=== PATIENT | female | born 1990 | race Caucasian/White ===

== ENCOUNTER 2023-12-04 07:41 | Outpatient (CLI) | payer OTHER, SELFPAY | END 2023-12-04 07:42 | disposition home or self-care (01) | PROVIDERS: PCP Family Medicine; Visit Provider Family Medicine | DX: R03.0 Elevated blood-pressure reading, without diagnosis of hypertension (principal); E66.01 Morbid (severe) obesity due to excess calories; Z13.220 Encounter for screening for lipoid disorders; Z13.29 Encounter for screening for other suspected endocrine disorder | CPT/HCPCS: 80053; 80061; 84443 ==

== ENCOUNTER 2024-09-07 19:47 | Emergency (ER) | payer OTHER, SELFPAY ==
[2024-09-07] VITALS (13 sets, daily range): BP systolic 125–135; BP diastolic 67–81; PULSE 90–105; RESP 11–23; TEMP 36.7; O2SAT 97–100; BMI 74.2
--- NOTE | 2024-09-07 20:03 | ED.CHESTPAIN ---
HPI - Chest Pain General Time Seen by Provider: 20:04 Date Seen: 09/07/24 Chief Complaint: Chest Pain Stated Complaint: right chest pain moving into shoulder Time Seen by Provider: 09/07/24 20:03 Source: patient, RN notes reviewed and old records reviewed Mode of arrival: ambulatory Limitations: no limitations History of Present Illness HPI narrative: Meri is a very pleasant 33-year-old female with history of elevated BMI, past history of gestational hypertension who comes to the emergency room with chest pain. Meri notes the onset of chest discomfort-shows me to be the right ribcage laterally yesterday. Today it is now moved up into the right anterior upper chest. She notes that when the discomfort happens at seems to be sharp or pressure-like and is occurring for up to 10 seconds at a time. She notes that it is worse when she is walking but the pain will also occur at rest as well. She has not had any shortness of breath or vomiting. She denies any into indigestion fever chills cough or cold. She denies lower extremity edema. Notes that in the past she had a blood clot but never needed to go on a blood thinner. No recent travel increasing calf size or tenderness. Meri cannot recall any unusual activity, trauma or fall. 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 Related Data Home Medications ?Medication ?Instructions ?Recorded ?Confirmed No Known Home Medications 07/25/23 09/07/24 Allergies Allergy/AdvReac Type Severity Reaction Status Date / Time vancomycin Allergy Severe Anaphylaxis Verified 09/07/24 19:58 soy Allergy Unknown Unknown Verified 09/07/24 19:58 Review of Systems Status of ROS Reports: 10 or more systems reviewed and unremarkable except as noted in History and below Const Denies: fever, chills or fatigue Eyes Denies: change in vision ENMT Denies: throat pain, neck pain or nasal congestion Cardio Denies: chest pain, swelling of feet/ankles, lightheadedness or shortness of breath with exertion Resp Denies: shortness of breath or cough GI Denies: abdominal pain, nausea or vomiting Musculo Denies: neck pain Neuro Denies: headache Endo Denies: fatigue [facility] Medical History History of vaginal delivery (07/27/14) History of gestational hypertension (2015) ?Z87.59 - Personal history of other complications of , childbirth and the puerperium (ICD-10) Surgical History History of tonsillectomy and adenoidectomy ?Z90.89 - Acquired absence of other organs (ICD-10) Social History What is your current living situation?: I presently have a place to live Problems where you live: declined to answer In the past 12 months, utilities in danger of being shut off: declined to answer In past 12 months, lack of transportation kept you from medical appts, meetings, work, or getting things needed for daily living: no In the past 12 mos, have been you worried that your food would run out before you had money to buy more?: never true In the past 12 mos, the food you bought just didn't last and you didn't have money to buy more?: never true Smoking Status: Never smoker Second hand tobacco smoke exposure: No How often do you have a drink containing alcohol: never AUDIT-C Alcohol total score: 0 Non-prescribed substance use: denies use How often does anyone, including family, friends and others, physically hurt you: never How often does anyone, including family, friends and others, insult or talk down to you: never How often does anyone, including family, friends and others, threaten you with harm: never How often does anyone, including family, friends and others, scream or curse at you: never Exam Narrative Exam Narrative: Alert and oriented. Very pleasant well-spoken woman in no acute distress. External ears eyes nose clear. Mentation and speech normal. Neck is supple. Heart with a tachycardic rate but normal rhythm. No additional heart sounds noted. Lungs are clear bilaterally. Abdomen is soft nontender. Specifically no pain in the right upper quadrant. Lower extremities are with symmetry, no extensive edema. No calf tenderness. Const Vital Signs, click to edit/add: Vital Signs - 24 hr 09/07/24 19:57 09/07/24 20:56 09/07/24 21:00 Temperature 98.0 F Pulse Rate Pulse Rate [Right Pulse Oximeter] 105 H Respiratory Rate 20 22 13 Blood Pressure Blood Pressure [Right Upper Arm] 135/81 Pulse Oximetry 100 Oxygen Delivery Method Room Air 09/07/24 21:15 09/07/24 21:30 09/07/24 21:31 Temperature Pulse Rate 94 99 Pulse Rate [Right Pulse Oximeter] Respiratory Rate 11 L 11 L Blood Pressure 133/67 Blood Pressure [Right Upper Arm] Pulse Oximetry 97 98 Oxygen Delivery Method 09/07/24 21:45 09/07/24 22:00 09/07/24 22:00 Temperature Pulse Rate 92 92 Pulse Rate [Right Pulse Oximeter] Respiratory Rate 13 21 Blood Pressure Blood Pressure [Right Upper Arm] Pulse Oximetry 97 98 97 Oxygen Delivery Method 09/07/24 22:15 09/07/24 22:30 09/07/24 22:45 Temperature Pulse Rate 94 93 94 Pulse Rate [Right Pulse Oximeter] Respiratory Rate 23 20 14 Blood Pressure Blood Pressure [Right Upper Arm] Pulse Oximetry 97 98 97 Oxygen Delivery Method 09/07/24 23:33 09/07/24 23:41 Temperature 98.0 F 98.0 F Pulse Rate Pulse Rate [Right Pulse Oximeter] 90 90 Respiratory Rate 16 16 Blood Pressure Blood Pressure [Right Upper Arm] 125/74 125/74 Pulse Oximetry 97 Oxygen Delivery Method Room Air Documenting provider has reviewed patient's vital signs: yes Course Course ED Course: Differential diagnosis includes but is not limited to PE, pneumothorax, angina, musculoskeletal pain, acute coronary event, pleurisy, URI. Will attempt IV placement and check CBC, comprehensive panel, CRP, D-dimer, troponin, urinalysis, hCG. Will also order chest x-ray EKG. Reevaluation(s) Reevaluation #1: EKG by my read shows sinus tachycardia at a rate of 103 but no evidence of acute coronary event or ST depression. Chest x-ray by my read does not show any evidence of pneumothorax or pneumonia. Initial troponin negative. Treat with Toradol to see if this helps her discomfort. Unfortunately nursing staff unable to place IV although they did draw blood. Will switch Toradol 15 mg IV to Toradol 30 mg IM. Reevaluation #2: Patient notes that she is feeling better after the Toradol. Note that she does have a mild leukocytosis and thus we are doing a triple viral swab. Hemoglobin at 10 appears to be a microcytic anemia. Vital Signs Vital signs: Initial Vital Signs Temperature 98.0 F 09/07/24 19:57 Temperature Source Temporal Artery Scan 09/07/24 19:57 Pulse Rate 105 H 09/07/24 19:57 Respiratory Rate 20 09/07/24 19:57 Blood Pressure 135/81 09/07/24 19:57 Blood Pressure Mean 99 09/07/24 19:57 Blood Pressure Position Sitting 09/07/24 19:57 Pulse Oximetry 100 09/07/24 19:57 Oxygen Delivery Method Room Air 09/07/24 19:57 Vital Signs Temperature 98.0 F 09/07/24 19:57 Pulse Rate 105 H 09/07/24 19:57 Respiratory Rate 20 09/07/24 19:57 Blood Pressure 135/81 09/07/24 19:57 Pulse Oximetry 100 09/07/24 19:57 Oxygen Delivery Method Room Air 09/07/24 19:57 Temperature 98.0 F 09/07/24 23:41 Pulse Rate 90 09/07/24 23:41 Respiratory Rate 16 09/07/24 23:41 Blood Pressure 125/74 09/07/24 23:41 Pulse Oximetry 97 09/07/24 23:33 Oxygen Delivery Method Room Air 09/07/24 23:33 Medications Administered Medications: Discontinued Medications Generic Name Dose Route Start Last Admin Trade Name Freq PRN Reason Stop Dose Admin Sodium Chloride 1,000 mls @ 1,000 mls/hr 09/07/24 20:24 09/07/24 21:33 0.9 % Sodium Chloride 1000 Ml IV 09/07/24 21:23 Not Given .Q1H MIGUE Ketorolac Tromethamine 15 mg 09/07/24 21:21 09/07/24 21:33 Ketorolac 15 Mg/Ml Inj IVP 09/07/24 21:22 Not Given ONCE ONE Ketorolac Tromethamine 30 mg 09/07/24 21:27 09/07/24 21:36 Ketorolac 30 Mg/Ml Inj IM 09/07/24 21:28 30 mg ONCE ONE Administration MDM - Chest Pain MDM Narrative Medical decision making narrative: 1. Atypical chest pain-troponin negative x2. EKG reassuring. At this time no evidence of acute coronary syndrome. No changes in ST segments on the EKG. Chest pain is improved at this time with the use of Toradol 30 mg IM. This may represent musculoskeletal discomfort versus pleurisy. Chest x-ray without evidence of pneumothorax or pneumonia. Recommend follow-up with primary MD. May need chemical stress test if discomfort persists. Patient is instructed to return to the emergency room for worsening symptoms. 2. Tachycardia-resolved. Unfortunately unable to give IV fluids as placement of IV failed. Patient has been drinking fluids. Heart rate in the low 90s. 3. Microcytic anemia -no recent blood work for comparison. Blood cells are microcytic and hemoglobin is 10. Recommend follow-up with primary MD for further workup. 4. Disposition-home at this time. Return for worsening symptoms. Medical Records Data Attestation: I reviewed the patient's medical records. Lab Data Attestation: I reviewed the patient's lab results. Labs: Lab Results 09/07/24 09/07/24 09/07/24 Range/Units 20:23 20:37 21:02 WBC 13.21 H (4.50-11.00) K/uL RBC 4.55 (4.00-5.20) m/uL Hgb 10.1 L (12.0-16.0) gm/dL Hct 32.7 L (33.0-51.0) % MCV 72 L (80-100) fL MCH 22 L (26-34) pg MCHC 31 L (32-36) gm/dL RDW Coeff of Rajesh 16.8 H (11.5-15.5) % Plt Count 348 (140-440) K/uL Neut % (Auto) 67.4 (42.0-72.0) % Lymph % (Auto) 23.8 (20-44) % [place] % (Auto) 6.1 (0.0-11.0) % Eos % (Auto) 2.0 (0.0-7.0) % Baso % (Auto) 0.2 (0.0-3.0) % Neut # (Auto) 8.90 H (1.7-7.0) K/uL Lymph # (Auto) 3.10 H (0.90-2.90) K/uL [place] # (Auto) 0.80 (0.00-0.90) K/UL Eos # (Auto) 0.30 (0.00-0.50) K/uL Baso # (Auto) 0.00 (0.00-0.30) K/uL Abs Immat Gran (auto) 0.10 (0.00-0.30) K/uL Imm/Tot Granulo (auto) 0.5 % D-Dimer Quant (PE/DVT) < 0.27 (0.00-0.50) ug/ml Sodium 137 (135-149) mmol/L Potassium 3.8 (3.6-5.1) mmol/L Chloride 104 (96-114) mmol/L Carbon Dioxide 25 (20-32) mmol/L Anion Gap 8 (7-15) mEq/L BUN 15 (5-24) mg/dL Creatinine 1.0 (0.5-1.5) mg/dL Estimated Creat Clear 71.33 Estimated GFR 76 ml/min Glucose 110 (60-115) mg/dL Calcium 9.2 (8.4-10.6) mg/dL Total Bilirubin 0.7 (0.1-1.5) mg/dL AST 22 (12-35) U/L ALT 21 (4-35) U/L Alkaline Phosphatase 68 (40-150) U/L Total Protein 7.4 (6.0-8.3) g/dL Albumin 4.1 (3.3-5.0) g/dL Urine Color Yellow (Yellow) Urine Appearance Clear (Clear) Urine pH 6.0 (5.0-8.5) Ur Specific [place] 1.025 (1.000-1.030) Urine Protein Negative (Negative) Urine Glucose (UA) Negative (Negative) Urine Ketones Negative (Negative) Urine Blood Negative (Negative) Urine Nitrite Negative (Negative) Urine Bilirubin Negative (Negative) Urine Urobilinogen 0.2 (0.2-1.0) Ur Leukocyte Esterase Trace A (Negative) Urine RBC 0-2 (0-2) Urine WBC 0-2 (0-5) Ur Squamous Epith Cells None (None-Few) Urine Bacteria None (None) Urine HCG, Qual Negative (Negative) SARS-CoV-2 (PCR) (Negative) Influenza Type A (PCR) (Negative) Influenza Type B (PCR) (Negative) RSV (PCR) (Negative) POC Troponin I 0.00 L (0.01-0.04) ng/ml 09/07/24 09/07/24 Range/Units 22:38 22:44 WBC (4.50-11.00) K/uL RBC (4.00-5.20) m/uL Hgb (12.0-16.0) gm/dL Hct (33.0-51.0) % MCV (80-100) fL MCH (26-34) pg MCHC (32-36) gm/dL RDW Coeff of Rajesh (11.5-15.5) % Plt Count (140-440) K/uL Neut % (Auto) (42.0-72.0) % Lymph % (Auto) (20-44) % [place] % (Auto) (0.0-11.0) % Eos % (Auto) (0.0-7.0) % Baso % (Auto) (0.0-3.0) % Neut # (Auto) (1.7-7.0) K/uL Lymph # (Auto) (0.90-2.90) K/uL [place] # (Auto) (0.00-0.90) K/UL Eos # (Auto) (0.00-0.50) K/uL Baso # (Auto) (0.00-0.30) K/uL Abs Immat Gran (auto) (0.00-0.30) K/uL Imm/Tot Granulo (auto) % D-Dimer Quant (PE/DVT) (0.00-0.50) ug/ml Sodium (135-149) mmol/L Potassium (3.6-5.1) mmol/L Chloride (96-114) mmol/L Carbon Dioxide (20-32) mmol/L Anion Gap (7-15) mEq/L BUN (5-24) mg/dL Creatinine (0.5-1.5) mg/dL Estimated Creat Clear Estimated GFR ml/min Glucose (60-115) mg/dL Calcium (8.4-10.6) mg/dL Total Bilirubin (0.1-1.5) mg/dL AST (12-35) U/L ALT (4-35) U/L Alkaline Phosphatase (40-150) U/L Total Protein (6.0-8.3) g/dL Albumin (3.3-5.0) g/dL Urine Color (Yellow) Urine Appearance (Clear) Urine pH (5.0-8.5) Ur Specific [place] (1.000-1.030) Urine Protein (Negative) Urine Glucose (UA) (Negative) Urine Ketones (Negative) Urine Blood (Negative) Urine Nitrite (Negative) Urine Bilirubin (Negative) Urine Urobilinogen (0.2-1.0) Ur Leukocyte Esterase (Negative) Urine RBC (0-2) Urine WBC (0-5) Ur Squamous Epith Cells (None-Few) Urine Bacteria (None) Urine HCG, Qual (Negative) SARS-CoV-2 (PCR) Negative SARS-CoV-2 (Negative) Influenza Type A (PCR) Negative PCR FLU A (Negative) Influenza Type B (PCR) Negative PCR FLU B (Negative) RSV (PCR) Negative PCR RSV (Negative) POC Troponin I 0.01 (0.01-0.04) ng/ml Imaging Data Chest x-ray: Attestation: I have reviewed the pertinent imaging results. My impression: I do not note any obvious infiltrates. Radiologist's impression: FINDINGS: The sensitivity and specificity of the exam are moderately limited by the patient`s body habitus. Mediastinum: The mediastinum is normal in appearance. The heart silhouette is normal in size and morphology. Lung: Both lungs are unremarkable in appearance with small lung volumes. No sign of pleural effusion seen. No pneumothorax is identified. Bone and Soft tissue: Unremarkable for age. IMPRESSION: 1. No acute cardiopulmonary disease is seen. ECG Data Attestation: I personally reviewed and interpreted this ECG as follows: ECG interpretation date: 09/07/24 Interpretation: EKG by my read shows sinus tachycardia at a rate of 103 isolated flattening of the T-wave in 3. I do not note any acute ST or T-wave change. NH and QT intervals within normal limits. Discharge Plan Discharge Clinical Impression: Atypical chest pain, Tachycardia, Microcytic anemia Patient Disposition: Home, Self-Care Condition: Improved Additional Instructions: Suggest the use of ibuprofen 600 mg every 8 hours as needed for any discomfort. If however you have increasing pain, shortness of breath or worsening symptoms you need to return to the emergency room for further evaluation. Recommend follow-up with your primary MD to re-evaluate anemia with a hemoglobin of 10. If you continue to have chest discomfort you may be a candidate for a stress test. Prescriptions: No Action No Known Home Medications Follow Up/Referrals: Vitaliy Sandoval MD [Primary Care Provider, Family Practice] Stand Alone Forms: [employer] Info Instructions
--- NOTE | 2024-09-07 20:23 | CRLHL7_ITS ---
For Patients: As a result of the Century Cures Act, medical imaging exams and procedure reports are released immediately into your electronic medical record. You may view this report before your referring provider. If you have questions, please contact your health care provider. INDICATION: Right-sided chest pain TECHNIQUE: Chest radiograph 1 view COMPARISON: None FINDINGS: The sensitivity and specificity of the exam are moderately limited by the patient`s body habitus. Mediastinum: The mediastinum is normal in appearance. The heart silhouette is normal in size and morphology. Lung: Both lungs are unremarkable in appearance with small lung volumes. No sign of pleural effusion seen. No pneumothorax is identified. Bone and Soft tissue: Unremarkable for age. IMPRESSION: 1. No acute cardiopulmonary disease is seen. Dictated by: Otis Thurston MD @ 09/07/2024 20:46:56 (Electronically Signed)
[2024-09-07 20:42] LABS: Appearance Urine Clear (Clear); Bilirubin Urine Negative (Negative); Blood Urine Negative (Negative); Color Urine Yellow (Yellow); Glucose Urine Negative (Negative); Ketones Urine Negative (Negative); Leukocyte Esterase Urine Trace (Negative); Nitrite Urine Negative (Negative); Protein Urine Negative (Negative); Specific Gravity Urine 1.025 (1.000-1.030); Urobilinogen Urine 0.2 (0.2-1.0)
[2024-09-07 20:46] LABS: RBC Urine 0-2 (0-2); Ur HCG Qualitative* Negative (Negative); WBC Urine 0-2 (0-5)
[2024-09-07 21:24] LABS: Basophils Percent Auto 0.2 % (0.0-3.0); Hematocrit 32.7 % (33.0-51.0); Hemoglobin* 10.1 gm/dL (12.0-16.0); Immature Granulocytes Pct Auto 0.5 %; Lymphocytes Percent Auto 23.8 % (20-44); Mean Corpuscular HGB Conc 31 gm/dL (32-36); Mean Corpuscular Hemoglobin 22 pg (26-34); Mean Corpuscular Volume 72 fL (80-100); Monocytes Percent Auto 6.1 % (0.0-11.0); Neutrophils Percent Auto 67.4 % (42.0-72.0); Platelet Count* 348 K/uL (140-440); RDW Coefficient of Variation % 16.8 % (11.5-15.5); Red Blood Count 4.55 m/uL (4.00-5.20); White Blood Count* 13.21 K/uL (4.50-11.00)
[2024-09-07 21:25] LABS: Slide Review Reflex No
[2024-09-07 21:27] LABS: Albumin* 4.1 g/dL (3.3-5.0); Chloride* 104 mmol/L (96-114); Sodium* 137 mmol/L (135-149)
[2024-09-07 21:28] LABS: Potassium* 3.8 mmol/L (3.6-5.1)
[2024-09-07 21:30] LABS: Alanine Aminotransferase* 21 U/L (4-35); Alkaline Phosphatase* 68 U/L (40-150); Anion Gap 8 mEq/L (7-15); Aspartate Amino Transferase* 22 U/L (12-35); Bilirubin Total* 0.7 mg/dL (0.1-1.5); Blood Urea Nitrogen* 15 mg/dL (5-24); Carbon Dioxide* 25 mmol/L (20-32); Est. Creatinine Clearance* 71.33; Estimated Glomerular Filt Rate 76 ml/min; Total Protein* 7.4 g/dL (6.0-8.3)
[2024-09-07 21:31] LABS: Calcium* 9.2 mg/dL (8.4-10.6); Glucose* 110 mg/dL (60-115)
[2024-09-07] MEDS: KETOROLAC 30 MG/ML inj IM (21:36)
[2024-09-07 22:08] LABS: D Dimer Quantitative* < 0.27 ug/ml (0.00-0.50)
[2024-09-07 22:53] LABS: Troponin, Point-of-Care* 0.01 ng/ml (0.01-0.04)
[2024-09-07 23:34] LABS: PCR FLU A Negative PCR FLU A (Negative); PCR FLU B Negative PCR FLU B (Negative); PCR RSV Negative PCR RSV (Negative); SARS PCR* Negative SARS-CoV-2 (Negative)
== END 2024-09-07 23:41 | disposition home or self-care (01) ==
PROVIDERS: Emergency Provider Family Medicine; PCP Family Medicine
DX: R07.89 Other chest pain (principal); D50.8 Other iron deficiency anemias
CPT/HCPCS: 36415; 71045; 80053; 81001; 81025; 84484; 85025; 85379; 87086; 87631; 93005; 94761; 96372; 99284; J1885

== ENCOUNTER 2024-09-16 09:04 | Outpatient (CLI) | payer OTHER, SELFPAY | END 2024-09-16 09:05 | disposition home or self-care (01) | LOC: NFLDREF 09:05 | PROVIDERS: PCP Family Medicine; Visit Provider Family Medicine | DX: D50.9 Iron deficiency anemia, unspecified (principal) | CPT/HCPCS: 82728 ==

== ENCOUNTER 2024-10-26 10:10 | Emergency (ER) | payer OTHER, SELFPAY ==
[2024-10-26 10:18] VITALS: BP 168/104; PULSE 104; RESP 18; TEMP 37.2; O2SAT 97; BMI 68.3
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
[2024-10-26] MEDS: ACETAMINOPHEN 500 MG TABLET 1000 MG PO (10:46)
[2024-10-26 11:11] LABS: Hemoglobin* 10.1 gm/dL (12.0-16.0); Mean Corpuscular HGB Conc 31 gm/dL (32-36); Mean Corpuscular Volume 73 fL (80-100)
[2024-10-26 11:12] LABS: Slide Review Reflex Yes
[2024-10-26 11:13] LABS: Slide Review Acceptable Review (Acceptable)
[2024-10-26 11:26] LABS: Chloride* 107 mmol/L (96-114); Potassium* 4.1 mmol/L (3.6-5.1); Sodium* 137 mmol/L (135-149)
[2024-10-26 11:29] LABS: Anion Gap 6 mEq/L (7-15); Blood Urea Nitrogen* 12 mg/dL (5-24); Calcium* 8.9 mg/dL (8.4-10.6); Carbon Dioxide* 24 mmol/L (20-32); Creatinine* 0.8 mg/dL (0.5-1.5); Est. Creatinine Clearance* 96.36; Estimated Glomerular Filt Rate 99 ml/min; Glucose* 104 mg/dL (60-115)
[2024-10-26 11:41] VITALS: O2SAT 98
[2024-10-26 11:49] LABS: Hematocrit 32.8 % (33.0-51.0); Immature Granulocytes Abs Auto 0.00 K/uL (0.00-0.30); Immature Granulocytes Pct Auto 0.1 %; Lymphocytes Absolute Auto 1.90 K/uL (0.90-2.90); Mean Corpuscular Hemoglobin 23 pg (26-34); RDW Coefficient of Variation % 17.4 % (11.5-15.5); Red Blood Count 4.49 m/uL (4.00-5.20); White Blood Count* 7.60 K/uL (4.50-11.00)
[2024-10-26 12:09] VITALS: PULSE 87; O2SAT 98
== END 2024-10-26 13:20 | disposition home or self-care (01) ==
PROVIDERS: Emergency Provider Family Medicine; PCP Family Medicine
DX: S39.012A Strain of muscle, fascia and tendon of lower back, initial encounter (principal); V43.52XA Car driver injured in collision with other type car in traffic accident, initial encounter
CPT/HCPCS: 36415; 71260; 72128; 72131; 74177; 80048; 85025; 94761; 99284; 99285; A9270; Q9967